=== PATIENT | female | born 1955 | race Caucasian/White ===

== ENCOUNTER → 2017-08-15 | Outpatient (CLI) | payer OTHER ==
[~2017-08-15] MED LIST: ALPR.5 PO; CHLO25 PO; DIAZ5 PO; ERGO400 PO; ESCI10 PO; FISH1000 PO; GABA300 PO; LORA1; Librium25 MG PO; MULVITA PO; SULTRIDS PO
== END ==
LOC: LAB SHORT 14:01 → PLD 14:01
DX: D48.5 Neoplasm of uncertain behavior of skin (principal)
CPT/HCPCS: 88305

== ENCOUNTER → 2017-09-10 | Outpatient (CLI) | payer OTHER | END | disposition home or self-care (01) | LOC: LAB SHORT 14:10 → PLD 14:10 | DX: C44.719 Basal cell carcinoma of skin of left lower limb, including hip (principal) | CPT/HCPCS: 88305 ==

== ENCOUNTER 2018-12-09 20:35 | Emergency (ER) | payer OTHER ==
[~2018-12-09] VITALS: Ht 152.4 cm; Wt 37.6 kg
[2018-12-09] MEDS ORDERED: GABA300T24 PO (20:53)
[2018-12-09] MEDS ORDERED: DIVA500EC PO (20:54)
[2018-12-09] MEDS ORDERED: DIAZ5 PO (20:54)
[2018-12-09] MEDS ORDERED: ESCI20 PO (20:54)
== END 2018-12-10 00:23 | disposition left against medical advice (07) ==
LOC: ER 20:35
DX: H54.62 Unqualified visual loss, left eye, normal vision right eye (principal); Z53.20 Procedure and treatment not carried out because of patient's decision for unspecified reasons
CPT/HCPCS: 99283

== ENCOUNTER → 2018-12-24 | Outpatient (CLI) | payer OTHER ==
[~2018-12-24] MED LIST changes: +DIVA500EC PO; +ESCI20 PO; +GABA300T24 PO
== END ==
LOC: LAB SHORT 15:12 → PLD 15:12
DX: D48.5 Neoplasm of uncertain behavior of skin (principal)
CPT/HCPCS: 88305

== ENCOUNTER → 2022-02-13 | Outpatient (CLI) | payer OTHER | END | disposition home or self-care (01) | LOC: PLD 08:25 → LAB SHORT 08:25 | DX: C44.329 Squamous cell carcinoma of skin of other parts of face (principal); D22.62 Melanocytic nevi of left upper limb, including shoulder; L82.1 Other seborrheic keratosis | CPT/HCPCS: 88305 ==

== ENCOUNTER → 2022-03-13 | Outpatient (CLI) | payer OTHER | LOC: LAB SHORT 08:59 → PLD 08:59 | DX: C44.311 Basal cell carcinoma of skin of nose (principal) | CPT/HCPCS: 88305 ==

== ENCOUNTER → 2024-02-11 | Outpatient (CLI) | payer OTHER | END | disposition home or self-care (01) | LOC: LAB 15:18 → LAB SHORT 15:18 | DX: N39.0 Urinary tract infection, site not specified (principal) | CPT/HCPCS: 87077; 87086; 87186 ==

== ENCOUNTER → 2024-06-25 | Outpatient (CLI) | payer OTHER | LOC: LAB SHORT 15:26 → LAB 15:26 | DX: R30.0 Dysuria (principal) | CPT/HCPCS: 87077; 87086; 87186 ==

== ENCOUNTER → 2024-08-07 | Outpatient (CLI) | payer OTHER | LOC: LAB SHORT 17:56 → LAB 17:56 | DX: R30.0 Dysuria (principal) | CPT/HCPCS: 87086 ==

== ENCOUNTER → 2024-08-29 | Outpatient (CLI) | payer OTHER ==
[2024-08-29 17:49] LABS: Source, Urine Voided
[2024-08-29 19:20] LABS: Appearance, Urine Clear (Clear); Bilirubin, Urine Neg (Neg); Blood, Urine Neg (Neg); Glucose Qualitative, Urine Neg (Neg); Ketones, Urine Neg (Neg); Leukocyte Esterase, Urine Neg (Neg); Nitrite, Urine Neg (Neg); Protein, Urine Neg (Neg); Urobilinogen, Urine NORM (Normal)
[2024-08-29 19:28] LABS: Color, Urine Pale Yellow (P-Yellow)
== END ==
LOC: LAB 17:46 → LAB SHORT 17:46
PROVIDERS: Student in an Organized Health Care Education/Training Program
DX: R30.0 Dysuria (principal)
CPT/HCPCS: 81003